=== PATIENT | female | born 1995 | race Caucasian/White ===

== ENCOUNTER 2021-04-26 12:08 | Emergency (ER) | payer OTHER, SELFPAY ==
--- NOTE | 2021-04-26 12:10 | ED.SKABFB ---
HPI - Skin/Abscess/Foreign Bdy General Chief complaint: Skin/Abscess/Foreign Body Stated complaint: Chigger Bites Time Seen by Provider: 04/26/21 12:10 Source: patient and RN notes reviewed History of Present Illness HPI narrative: Patient is a 26-year-old female who presents the urgent care with complaints of chigger bites to the thighs, lower legs/ankles, hands and between the fingers. Patient states that she was on vacation 8 days ago and was told to look out for triggers . Patient states that her sons have mild bites to the hands but she seems to have gotten a bit much more . Patient states that she saw the little red sugars . No other acute complaints. No acute distress noted. Patient aware of the plan of care. Some parts of this dictation were generated by voice recognition software and may contain typographical and/or grammatical inaccuracies. Related Data Home Medications Medication Instructions Recorded Confirmed levonorgestrel [Mirena] INTRAUTERINE 04/26/21 Allergies Allergy/AdvReac Type Severity Reaction Status Date / Time No Known Allergies Allergy Verified 04/26/21 12:23 Review of Systems Review of Systems: Narrative: CONSTITUTIONAL: Denies fever, chills, or sweats. EYES: Denies visual changes, redness, or discharge. ENT: Denies rhinorrhea, congestion, sore throat, or otalgia. CARDIOVASCULAR: Denies chest pain, palpitations, or edema. RESPIRATORY: Denies cough or dyspnea. GASTROINTESTINAL: Denies abdominal pain, nausea, vomiting, or diarrhea. GENITOURINARY: Denies dysuria or hematuria. SKIN: Reports of itchy chigger bites on the hands, between the fingers, lower legs and upper thighs MUSCULOSKELETAL: Denies back pain, joint pain, or myalgia. NEUROLOGIC: Denies headache, numbness, or weakness. All other systems reviewed are negative, except as documented in HPI. PMFSH Comments At the time of my signature, I reviewed and agree with the nursing past medical, surgical, social, and family history. There is no relevant family history pertinent to the patient complaint. Exam Narrative: Exam Narrative: GENERAL: This is a well-nourished, well-developed patient, in no apparent distress. HEAD: normocephalic, atraumatic. EYES: PERRL. Sclera clear/white. Vision is grossly intact. EARS: External ears normal NOSE: External nose normal with no obvious nasal discharge, nares without redness, no rhinorrhea. THROAT: Mucous membranes moist NECK: Neck supple CARDIOVASCULAR: Regular rate and rhythm without murmurs, gallops, or rubs. RESPIRATORY: Clear to auscultation. Breath sounds equal bilaterally. No wheezes, rales, or rhonchi. SKIN: Raised pruritic scattered insect bites noted between the fingers, bilateral lower legs, upper thighs NEURO: awake, alert, and oriented to person, place and time. There were no obvious focal neurologic abnormalities. EXTREMITIES: No clubbing, cyanosis, or edema. Course Vital Signs Vital signs: Vital Signs Temperature 97.5 F L 04/26/21 12:20 Pulse Rate 77 04/26/21 12:20 Respiratory Rate 16 04/26/21 12:20 Blood Pressure 139/76 04/26/21 12:20 Pulse Oximetry 100 04/26/21 12:20 Temperature 97.5 F L 04/26/21 12:20 Pulse Rate 77 04/26/21 12:20 Respiratory Rate 16 04/26/21 12:20 Blood Pressure 139/76 04/26/21 12:20 Pulse Oximetry 100 04/26/21 12:20 Reviewed MDM - Skin/Abscess/Foreign Bdy MDM Narrative Medical decision making narrative: Advised the patient to use steroid cream to the affected areas as directed with avoiding the underarms, groin and near the eyes. Complete the oral steroid regimen as prescribed. Be sure you are eating and drinking with the medication. May use Benadryl as needed for itching prior to bedtime. Try to keep your hands off the areas. Follow-up with your PCP within 2 to 5 days or for worsening symptoms or failure to improve. Discussed possible scabies with the patient and she is aware that at the chigger bites seem to pro
[2021-04-26 12:20] VITALS: BP 139/76; PULSE 77; RESP 16; TEMP 36.4; O2SAT 100
== END 2021-04-26 12:32 | disposition home or self-care (01) ==
PROVIDERS: Emergency Provider Nurse Practitioner Family
DX: B88.0 Other acariasis (principal)
CPT/HCPCS: 99213; G0463